=== PATIENT | male | born 1945 | race Caucasian/White ===

== ENCOUNTER → 2020-05-15 08:57 | Outpatient (BNVA) | payer MEDICARE, SELFPAY | PROVIDERS: Visit Provider Internal Medicine Pulmonary Disease | DX: J44.9 Chronic obstructive pulmonary disease, unspecified (principal); J84.112 Idiopathic pulmonary fibrosis; Z99.81 Dependence on supplemental oxygen | CPT/HCPCS: 99212 ==

== ENCOUNTER → 2021-05-07 09:39 | Outpatient (BNVA) | payer MEDICARE, SELFPAY | PROVIDERS: PCP Internal Medicine; Visit Provider Internal Medicine Pulmonary Disease | DX: J44.9 Chronic obstructive pulmonary disease, unspecified (principal); J84.112 Idiopathic pulmonary fibrosis; Z99.81 Dependence on supplemental oxygen | CPT/HCPCS: 94618; 94640; 99212 ==

== ENCOUNTER → 2021-06-04 09:52 | Outpatient (BNVA) | payer MEDICARE, SELFPAY | PROVIDERS: PCP Internal Medicine; Visit Provider Internal Medicine Pulmonary Disease | DX: J44.9 Chronic obstructive pulmonary disease, unspecified (principal); J84.112 Idiopathic pulmonary fibrosis; Z99.81 Dependence on supplemental oxygen | CPT/HCPCS: 99212 ==

== ENCOUNTER 2021-07-08 09:05 | Outpatient (REF) | payer MEDICARE, SELFPAY ==
--- NOTE | 2021-07-08 13:16 | PFT_ITS ---
Forced vital capacity 80%, FEV1 105%, FEV1 over FVC ratio is 93, FEF 25/75 274%, and MVV 100%. Post bronchodilator therapy, no significant change. Total lung capacity 56% and residual volume 44%. Diffusion capacity is 25%. DL/VA 40%. CONCLUSION: There is no evidence of obstructive airway disorder. Moderately severe restrictive pulmonary disorder. Diffusion capacity is reduced, which may be due to restrictive pulmonary disorder, but other causes such as pulmonary vascular disease and non-pulmonary factors should be ruled out. Clinical correlation is recommended. Jj Stover MD MSB/MODL / [id number]
== END 2021-07-08 09:06 | disposition home or self-care (01) ==
LOC: HO.RESP 09:05
PROVIDERS: Visit Provider Internal Medicine Pulmonary Disease
DX: J84.112 Idiopathic pulmonary fibrosis (principal)
CPT/HCPCS: 94060; 94727; 94729

== ENCOUNTER → 2021-07-15 09:30 | Outpatient (BNVA) | payer MEDICARE, SELFPAY | PROVIDERS: PCP Internal Medicine; Visit Provider Internal Medicine Pulmonary Disease | DX: J44.9 Chronic obstructive pulmonary disease, unspecified (principal); J84.112 Idiopathic pulmonary fibrosis; Z99.81 Dependence on supplemental oxygen | CPT/HCPCS: 99212 ==

== ENCOUNTER → 2021-12-04 14:50 | Outpatient (BNVA) | payer MEDICARE, SELFPAY | PROVIDERS: PCP Internal Medicine; Visit Provider Internal Medicine Pulmonary Disease | DX: J44.9 Chronic obstructive pulmonary disease, unspecified (principal); J84.112 Idiopathic pulmonary fibrosis; Z99.81 Dependence on supplemental oxygen | CPT/HCPCS: 99212 ==